=== PATIENT | female | born 1975 | race Caucasian/White ===

== ENCOUNTER 2018-05-30 11:39 | Outpatient (CLI) | payer MEDICAID, SELFPAY ==
[2018-05-30 14:27] LABS: Hemoglobin A1C 9.8 % (4.5-6.2)
== END 2018-05-30 11:59 ==
PROVIDERS: PCP Family Medicine; Visit Provider Family Medicine
DX: E11.9 Type 2 diabetes mellitus without complications (principal)
CPT/HCPCS: 36415; 83036

== ENCOUNTER 2018-08-07 00:16 | Outpatient (CLI) | payer MEDICAID, SELFPAY ==
--- NOTE | 2018-08-07 12:56 | DI.MAMMO_ITS ---
SYMPTOMS/DIAGNOSIS: BASELINE SCREENING, Z12.31 MAMMOGRAMS: Mammograms were interpreted according to the usual protocol including computer analysis with CAD system, tomosynthesis and C view imaging. No priors for comparison. No suspicious masses or microcalcifications are seen. There is no definite evidence of malignancy. IMPRESSION: Negative mammogram. Routine screening is recommended. Breast density B, category 1. MQSA ASSESSMENT OF FINDINGS: Negative. Category 1. Patient will receive a letter notifying them of these results. BI-RADS category B. There are scattered areas of fibroglandular density.
== END 2018-08-07 00:36 ==
PROVIDERS: PCP Family Medicine; Visit Provider Family Medicine
DX: Z12.31 Encounter for screening mammogram for malignant neoplasm of breast (principal)
CPT/HCPCS: 77063; 77067

== ENCOUNTER 2018-10-17 14:38 | Outpatient (CLI) | payer MEDICAID, SELFPAY ==
[2018-10-17 15:15] LABS: Hemoglobin A1C 8.4 % (4.5-6.2)
[2018-10-17 15:52] LABS: Cholesterol 207 mg/dL (50-200); HDL Cholesterol 48 mg/dL (40-60); LDL CHOLESTEROL 138 mg/dL (<100); Triglyceride 104 mg/dL (30-150)
== END 2018-10-17 14:58 ==
PROVIDERS: PCP Family Medicine; Visit Provider Family Medicine
DX: E78.5 Hyperlipidemia, unspecified (principal); E11.9 Type 2 diabetes mellitus without complications; Z12.4 Encounter for screening for malignant neoplasm of cervix; Z11.51 Encounter for screening for human papillomavirus (HPV)
CPT/HCPCS: 36415; 80061; 83721; 83036

== ENCOUNTER 2018-10-17 14:45 | Outpatient (REF) | payer MEDICAID, SELFPAY ==
--- NOTE | 2018-10-17 14:00 | PAPFT_PTH ---
PATIENT: Leah Kurtz LOC: [facility] U#:[id number] AGE/SX: 42/F ROOM: RE10/17/[address]: Dean Carroll MD : 1975 BED: DIS: 10/17/2018 SPEC #: [id number] RECD: 10/17/18 18:21 STATUS: JESSI RERosita #: [id number] TISHA: 10/17/18 14:[address]: Dean Carroll DEPT: [facility] Cytology RECD BY: Karen Knox Tissues: 1 - CX/ENDOCX FOR PAP SMEARS Procedures: PAP THIN PREP/UVM Screening HPV DNA PROBE Comments: [id number]
== END 2018-10-17 15:05 ==
LOC: LBN 14:45
PROVIDERS: PCP Family Medicine; Visit Provider Family Medicine
DX: Z12.4 Encounter for screening for malignant neoplasm of cervix (principal); Z11.51 Encounter for screening for human papillomavirus (HPV)
CPT/HCPCS: 88142; 87624

== ENCOUNTER 2019-01-16 13:27 | Outpatient (CLI) | payer MEDICAID, SELFPAY ==
[2019-01-16 14:45] LABS: TSH (W/Ref FT4) 1.56 uIU/mL (0.36-3.74)
== END 2019-01-16 13:47 ==
PROVIDERS: PCP Family Medicine; Visit Provider Family Medicine
DX: E03.9 Hypothyroidism, unspecified (principal); E11.9 Type 2 diabetes mellitus without complications
CPT/HCPCS: 36415; 84443

== ENCOUNTER 2019-01-21 12:17 | Outpatient (CLI) | payer MEDICAID, SELFPAY ==
[2019-01-21 13:05] LABS: Hemoglobin A1C 8.6 % (4.5-6.2)
[2019-01-21 13:40] LABS: CREATININE 0.89 mg/dL (0.55-1.02); Potassium 4.3 mmol/L (3.5-5.1)
== END 2019-01-21 12:37 ==
PROVIDERS: PCP Family Medicine; Visit Provider Family Medicine
DX: E11.9 Type 2 diabetes mellitus without complications (principal)
CPT/HCPCS: 36415; 82565; 83036; 84132

== ENCOUNTER 2019-07-31 15:55 | Outpatient (CLI) | payer MEDICAID, SELFPAY ==
[2019-07-31 16:37] LABS: Hemoglobin A1C 8.7 % (3.8-5.6)
== END 2019-07-31 16:15 ==
PROVIDERS: PCP Family Medicine; Visit Provider Family Medicine
DX: R73.9 Hyperglycemia, unspecified (principal)
CPT/HCPCS: 36415; 83036

== ENCOUNTER 2020-01-20 03:59 | Outpatient (CLI) | payer MEDICAID, SELFPAY ==
[2020-01-20 14:22] LABS: Hemoglobin A1C 10.2 % (3.8-5.6)
[2020-01-20 15:08] LABS: CREATININE 1.01 mg/dL (0.55-1.02); Calculated LDL 107 mg/dL (<100); Cholesterol 189 mg/dL (<200); Estimated GFR 59.01 (mL/min/1.73m2); HDL Cholesterol 36 mg/dL (40-60); Potassium 3.8 mmol/L (3.5-5.1); Triglyceride 234 mg/dL (<150)
== END 2020-01-20 04:19 ==
PROVIDERS: PCP Family Medicine; Visit Provider Family Medicine
DX: E78.5 Hyperlipidemia, unspecified (principal); I10 Essential (primary) hypertension; R73.9 Hyperglycemia, unspecified
CPT/HCPCS: 36415; 80061; 82565; 83036; 84132

== ENCOUNTER 2020-08-19 04:30 | Outpatient (CLI) | payer MEDICAID, SELFPAY ==
--- NOTE | 2020-08-19 15:45 | DI.MAMMO_ITS ---
EXAM: MG MAMMO SCREENING CLINICAL HISTORY: screening.Z12.39 TECHNIQUE: Bilateral full field digital CC and MLO mammographic images were obtained with 3D tomosyn thesis and utilizing computer aided detection (CAD). COMPARISON: Available for comparison. FINDINGS: Masses/Architectural Distortion: None seen. Microcalcifications: No suspicious pleomorphic-type are seen. Skin Thickening/Nipple Retraction: None. IMPRESSION: 1. No significant interval change with no specific features of malignancy noted. 2. Unless there is more urgent need, screening mammography is recommended, as per [place] guidelines. BI-RADS Category 1 - Negative Breast Density - Category B - Scattered areas of fibroglandular density Breast density category C or D implies that the patient has dense breast tissue. Dense breast tissue is very common and is not abnormal but dense breast tissue can make it harder to find cancer on a ma mmogram. Also, dense breast tissue may increase their breast cancer risk. This information about the result of the mammogram report was provided to the patient to raise their awareness. Use this report when you speak with the patient about their risks for breast cancer, which includes their family hist ory. At that time, you may recommend for more screening tests (Ultrasound or MRI) as they might be us eful based on their risk. A negative radiographic report should not delay biopsy if a dominant or clinically suspicious mass is present. Up to ten percent of cancers are not identified on mammography. A negative report may reinforce clinical impression. Adenosis and dense breasts may obscure an underlying neoplasm. False positive reports average 6 to 10%. Patient will receive a letter notifying them of these results.
== END 2020-08-19 04:50 ==
PROVIDERS: PCP Family Medicine; Visit Provider Family Medicine
DX: Z12.31 Encounter for screening mammogram for malignant neoplasm of breast (principal)
CPT/HCPCS: 77063; 77067

== ENCOUNTER 2021-02-05 21:30 | Emergency (ER) | payer MEDICAID, SELFPAY ==
[2021-02-05 21:39] VITALS: BP 143/83; PULSE 97; RESP 17; TEMP 36.6; O2SAT 97
[2021-02-05 21:44] VITALS: RESP 16
--- NOTE | 2021-02-05 21:53 | W.ED.GENAD ---
Discharge Plan Disposition Patient Disposition: HOME Condition: Stable Discharge Details Clinical Impression: Pain in right leg, Rash Primary Care Provider: Dean Carroll ED Provider: Josiah Larsen Home Meds and New Rx's Prescriptions: Continued harley fusion See Rx Instructions .ROUTE .COMPLEX RF: 0 Jardiance 25 mg tablet 25 mg PO QAM Qty: 90 RF: 3 glipizide 10 mg tablet extended release 24hr 20 mg PO DAILY Qty: 180 RF: 3 (DME) blood-glucose meter [OneTouch UltraMini] kit See Dose Instructions .ROUTE .MEDSUPPLY Qty: 1 RF: 0 (DME) lancets [OneTouch Delica Lancets] 33 gauge misc See Dose Instructions .ROUTE .MEDSUPPLY Qty: 100 RF: 3 epinephrine 0.3 mg/0.3 mL auto-injector 0.3 mg IM Q15M PRN (Reason: anaphylaxis) Qty: 2 RF: 0 (DME) OneTouch Ultra Blue Test Strip Strip See Rx Instructions .ROUTE .MEDSUPPLY Qty: 100 RF: 3 ibuprofen 800 mg tablet 800 mg PO TID PRN (Reason: pain) Qty: 90 RF: 2 loratadine 10 mg tablet 10 mg PO DAILY Qty: 90 RF: 3 Lantus Solostar U-100 Insulin 100 unit/mL (3 mL) insulin pen 30 - 50 unit subcut HS Qty: 45 RF: 3 levothyroxine 112 mcg tablet 112 mcg PO DAILY Qty: 90 RF: 3 semaglutide 7 mg tablet 7 mg PO DAILY Qty: 90 RF: 3 (DME) pen needle, diabetic 31 gauge x 1/6 needle 1 ea Miscellaneous DAILY Qty: 100 RF: 3 Discharge Instructions Additional Instructions: you did not have a blood clot on the limited bedside ultrasound you should be contacted to have an ultrasound by radiology tomorrow if you have severe worsening pain, shortness of breath, chest pain or feel more ill return to the emergency department Medical Decision Making 45 yo female comes in after she noticed several hours ago 3 small bruised areas on her leg without known trauma. Denies falls or straining her leg. She has 3 areas of mild bruising on the right inner thigh about 2cm in diameter. Mild tenderness to palpation, no warmth or fluctuance and no other rashes elsewhere. Normal distal sensation and pulses. No leg swelling or calf tenderness. I performed limited bedside u/s and did not visualize a dvt in the common femoral or popliteal vein with good compressibility. Discussed findings with patient and likely hematoma vs superficial thrombophlebitis. no recent travel or immobilization so feel she is low risk for dvt and do not feel she requires empiric anticoagulation. Will have her return tomorrow for formal u/s and return precautions given Differential Diagnosis Differential Diagnosis: thrombophlebitis, dvt, hematoma HPI General Mode of arrival: ambulatory. Date/Time Provider Initiated Documentation: 02/05/21 21:32. Limitations to Documentation: no limitations. Information obtained by: patient. History of Present Illness 45 year old F presents to the emergency department with the chief complaint of right leg pain, described as moderate, Quality is described as aching, and is localized to the right and lower extremity. Patient reports no radiation. Patient started experiencing this hour(s) (2) and it has been constant. No relieving factors improve symptom(s), No exacerbating factors reported . Patient notes no other symptoms.. Patient did receive the following treatments prior to arrival, none Related Data Home Medications Medication Instructions Recorded Confirmed blood-glucose meter #1 each 04/29/18 04/08/20 lancets 33 gauge #100 each 04/29/18 04/08/20 harley fusion See Rx Instructions .ROUTE .COMPLEX 04/21/19 02/05/21 epinephrine 0.3 mg/0.3 mL 0.3 mg IM Q15M PRN #2 each 08/13/19 02/05/21 injection, auto-injector empagliflozin 25 mg tablet 25 mg PO QAM #90 tab 04/08/20 02/05/21 blood sugar diagnostic #100 ea 06/22/20 ibuprofen 800 mg tablet 800 mg PO TID PRN #90 tab-cap 08/30/20 02/05/21 loratadine 10 mg tablet 10 mg PO DAILY #90 tab 10/07/20 02/05/21 insulin glargine 100 unit/mL (3 30 - 50 unit SUBCUT HS #45 ml 10/14/20 mL) subcutaneous pen glipizide 10 mg tablet, extended 20 mg PO DAILY #180 tab-cap 11/04/20 02/05/21 release 24 hr levothyroxine 112 mcg tablet 112 mcg PO DAILY #90 tab-cap 01/02/21 02/05/21 pen needle, diabetic 31 gauge x #100 ea 01/02/21 1 semaglutide 7 mg tablet 7 mg PO DAILY #90 tab 01/02/21 02/05/21 Previous Rx's Medication Instructions Recorded blood-glucose meter #1 each 04/29/18 lancets 33 gauge #100 each 04/29/18 epinephrine 0.3 mg/0.3 mL 0.3 mg IM Q15M PRN #2 each 08/13/19 injection, auto-injector empagliflozin 25 mg tablet 25 mg PO QAM #90 tab 04/08/20 blood sugar diagnostic #100 ea 06/22/20 ibuprofen 800 mg tablet 800 mg PO TID PRN #90 tab-cap 08/30/20 loratadine 10 mg tablet 10 mg PO DAILY #90 tab 10/07/20 insulin glargine 100 unit/mL (3 30 - 50 unit SUBCUT HS #45 ml 10/14/20 mL) subcutaneous pen glipizide 10 mg tablet, extended 20 mg PO DAILY #180 tab-cap 11/04/20 release 24 hr levothyroxine 112 mcg tablet 112 mcg PO DAILY #90 tab-cap 01/02/21 pen needle, diabetic 31 gauge x #100 ea 01/02/2106/22 semaglutide 7 mg tablet 7 mg PO DAILY #90 tab 01/02/21 Allergies Allergy/AdvReac Type Severity Reaction Status Date / Time adhesive tape Allergy Severe RASH Verified 02/05/21 21:42 latex Allergy Severe SEVERE RASH Verified 02/05/21 21:42 lavender (Lavandula Allergy Severe HIVES Verified 02/05/21 21:42 angustifolia) liraglutide [From Victoza] AdvReac Severe VOMITNG, Verified 02/05/21 21:42 DIARRHEA, STOMACH PAIN caffeine AdvReac Intermediate Headache Verified 02/05/21 21:42 codeine AdvReac Intermediate vomiting Verified 02/05/21 21:42 lisinopril AdvReac Intermediate GI UPSET Verified 02/05/21 21:42 metformin AdvReac Intermediate diarrhea Verified 02/05/21 21:42 olives Allergy Severe HIVES Uncoded 02/05/21 21:42 sesame seeds Allergy Severe Anaphylaxsi Uncoded 02/05/21 21:42 s General Stated Complaint: GenMedical NASIR: 4 Review of Systems All systems reviewed & are unremarkable except as noted in HPI and below Constitutional Constitutional: Denies chills, Denies fever(s) and Denies weakness Cardiovascular Cardiovascular: Denies chest pain and Denies dyspnea Respiratory Respiratory: Denies cough and Denies dyspnea Gastrointestinal Gastrointestinal: Denies abdominal pain, Denies nausea and Denies vomiting Musculoskeletal Musculoskeletal: Denies joint swelling Neurologic Neurologic: Denies weakness PFSH Surgical History FB and infection to r knee age 13 Tooth extraction age 18-wisdom teeth Family History (Updated 08/08/20 @ 08:54 by Nancy Mittal) Mother , 66 Vulvar cancer Father Diabetes Colitis Asthma Brother Asthma Brother No problems noted. Maternal Grandfather , 66 Heart disease Paternal Grandfather , 50 Alcohol abuse Cancer Maternal Grandmother , 65 Heart disease Paternal Grandmother , 60 Leukemia Social History (Updated 08/08/20 @ 08:53 by Nancy Mittal) Smoking/Tobacco Use Status: Never Second Hand Exposure: Yes Smoking risk assessment performed?: Yes Alcohol Intake: current Alcohol Intake frequency: holidays/special occasions only Alcohol type: hard liquor Drug use: Never Substance use type: does not use Caregiver/Support person: No Household members: other Details: Dad Housing: house Communication Needs: Hard of Hearing and Corrective Lenses Do you need help understanding health information?: Rarely Pets and animals: No Sexually active: No Do you think of yourself as: straight/heterosexual Current gender identity: female What is your relationship status?: never How often do you talk on the phone with friends or family?: never How often do you get together with friends or relatives?: once per week How often do you attend episcopal or tenriism services?: decline to answer Do you belong to any clubs or organized social groups?: no Panel score (0-1 are the most socially isolated patients): 0 What type of physical activity do you participate in: none Duration: < 15 minutes/day Frequency: 1-2 times per week Pearl/Restoration: None Special pearl needs: No Seatbelt use: always Helmet use: Yes Helmet use: always Drive intox or ride w/intox special education bus driver: No Do you feel safe at home: Yes Do you feel safe in your relationship?: Yes Exam Const General: no acute distress Orientation: alert [facility] Head: normal to inspection Ears: external ears normal General nose exam: external nose normal Mouth: moist mucous membranes Eyes General: appearance normal, both eyes and all related structures Neck Neck: normal visual inspection Resp Effort & Inspection: normal respiratory effort and able to speak in complete sentences Cardio Rate: regular rate Skin General skin exam: elasticity normal Neuro General: patient alert and patient oriented x3 Extrem General: full ROM and capillary refill normal Psych Mental Status: mental status grossly normal Course Vital Signs Vital signs: Vital Signs Respiratory Rate 16 02/05/21 21:44 Respiratory Rate 16 02/05/21 21:44 Respiratory Effort Non-Labored 02/05/21 21:44 Respiratory Depth Normal 02/05/21 21:44 Respiratory Pattern Normal 02/05/21 21:44 Pain Level 3 02/05/21 21:39
== END 2021-02-05 22:00 | disposition home or self-care (01) ==
PROVIDERS: Emergency Provider Emergency Medicine; PCP Family Medicine
DX: R21 Rash and other nonspecific skin eruption (principal); M79.651 Pain in right thigh
CPT/HCPCS: 99284; 99283

== ENCOUNTER 2021-02-10 12:39 | Outpatient (CLI) | payer MEDICAID, SELFPAY ==
[2021-02-10 12:53] LABS: Abs Immature Grans 0.02 10^3/uL (0.0-0.06); Absolute Basophil Count 0.06 10^3/uL (0.0-0.2); Absolute Lymphocyte Count 1.89 10^3/uL (1.2-3.4); Absolute Neutrophil Count 3.42 10^3/uL (1.2-6.7); Eosinophils % 3.3; HCT 42.8 % (36.0-46.0); HGB 14.6 g/dL (11.2-15.7); Immature Grans % 0.3; Lymphocytes % 31.6; MCH 31.5 pg (27.0-33.0); MCHC 34.1 % (32.0-36.0); MCV 92.4 fL (80-95); Monocytes % 6.7; Neutrophils % 57.1; Nucleated RBC 0 %; Platelet Count 276 10^3/uL (130-400); RBC 4.63 10^6/uL (3.93-5.22); RDW-SD 43.7 fL; WBC 5.99 10^3/uL (4.4-10.8)
== END 2021-02-10 12:40 | disposition home or self-care (01) ==
LOC: LBO 12:41
PROVIDERS: PCP Family Medicine; Visit Provider Family Medicine
DX: R58 Hemorrhage, not elsewhere classified (principal)
CPT/HCPCS: 36415; 85025

== ENCOUNTER 2021-08-18 17:28 | Outpatient (REF) | payer MEDICAID, SELFPAY ==
[2021-08-20 14:50] LABS: COVID-19 RT-PCR UVMMC Result Negative (Negative)
== END 2021-08-18 17:29 | disposition home or self-care (01) ==
LOC: LBN 17:28
PROVIDERS: PCP Family Medicine; Visit Provider Nurse Practitioner Family
DX: Z20.822 Contact with and (suspected) exposure to COVID-19 (principal)
CPT/HCPCS: U0003

== ENCOUNTER 2021-09-14 04:07 | Outpatient (CLI) | payer MEDICAID, SELFPAY ==
[2021-09-14 14:48] LABS: CREATININE 0.8 mg/dL (0.55-1.02); Calculated LDL 132 mg/dL (<100); Cholesterol 199 mg/dL (<200); HDL Cholesterol 45 mg/dL (40-60); Potassium 3.9 mmol/L (3.5-5.1); TSH (W/Ref FT4) 2.95 uIU/mL (0.36-3.74); Triglyceride 111 mg/dL (<150)
== END 2021-09-14 04:08 | disposition home or self-care (01) ==
LOC: LBO 04:07
PROVIDERS: PCP Family Medicine; Visit Provider Family Medicine
DX: E03.9 Hypothyroidism, unspecified (principal); I10 Essential (primary) hypertension; E78.5 Hyperlipidemia, unspecified
CPT/HCPCS: 36415; 80061; 82565; 84132; 84443

== ENCOUNTER 2022-09-10 11:38 | Outpatient (REF) | payer MEDICAID, SELFPAY ==
--- NOTE | 2022-09-07 14:00 | PAPFT_PTH ---
PATIENT: Leah Kurtz LOC: [facility] #:[id number] AGE/SX: 46/F ROOM: RE09/10/[address]: Timi Nieves NP : 1975 BED: DIS: 09/10/2022 SPEC #: [id number] RECD: 09/10/22 13:02 STATUS: JESSI ARIZMENDI #: [id number] TISHA: 09/07/22 14:[address]: Timi Nieves DEPT: [facility] Cytology RECD BY: Karen Knox Tissues: 1 - CX/ENDOCX FOR PAP SMEARS Procedures: PAP THIN PREP/UVM Screening HPV DNA PROBE Comments: [id number]
== END 2022-09-10 11:39 | disposition home or self-care (01) ==
LOC: LBN 11:38
PROVIDERS: PCP Nurse Practitioner Family; Visit Provider Nurse Practitioner Family
DX: Z12.4 Encounter for screening for malignant neoplasm of cervix (principal); Z11.51 Encounter for screening for human papillomavirus (HPV)
CPT/HCPCS: 88142; 87624

== ENCOUNTER 2022-11-09 01:30 | Outpatient (CLI) | payer MEDICAID, SELFPAY ==
[2022-11-09 12:51] LABS: TSH (W/Ref FT4) 5.56 uIU/mL (0.36-3.74)
[2022-11-09 13:15] LABS: FREE T4 1.12 ng/dL (0.76-1.46)
== END 2022-11-09 01:31 | disposition home or self-care (01) ==
LOC: LBO 01:30
PROVIDERS: PCP Nurse Practitioner Family; Visit Provider Nurse Practitioner Family
DX: E03.9 Hypothyroidism, unspecified (principal)
CPT/HCPCS: 36415; 84439; 84443

== ENCOUNTER 2022-12-14 14:51 | Outpatient (REF) | payer MEDICAID, SELFPAY ==
[2022-12-14 21:22] LABS: COMMENT (LAB VIEW ONLY) 41.44 mg/dL; Microalb ug/mg Crea 6.5 ug/mg Cr
== END 2022-12-14 14:52 | disposition home or self-care (01) ==
LOC: LBN 14:51
PROVIDERS: PCP Nurse Practitioner Family; Visit Provider Nurse Practitioner Family
DX: E11.9 Type 2 diabetes mellitus without complications (principal)
CPT/HCPCS: 82043; 82570

== ENCOUNTER 2023-04-17 13:18 | Outpatient (CLI) | payer MEDICAID, SELFPAY ==
[2023-04-17 12:46] LABS: Abs Immature Grans 0.01 10^3/uL (0.0-0.06); Absolute Basophil Count 0.07 10^3/uL (0.0-0.2); Absolute Eosinophil Count 0.31 10^3/uL (0.0-0.7); Absolute Lymphocyte Count 1.73 10^3/uL (1.2-3.4); Absolute Monocyte Count 0.57 10^3/uL (0.1-0.8); Absolute Neutrophil Count 3.59 10^3/uL (1.2-6.7); Basophils % 1.1; Eosinophils % 4.9; HCT 44.7 % (36.0-46.0); HGB 15.3 g/dL (11.2-15.7); Immature Grans % 0.2; Lymphocytes % 27.5; MCH 31.5 pg (27.0-33.0); MCHC 34.2 % (32.0-36.0); MCV 92 fL (80-95); Monocytes % 9.1; Neutrophils % 57.2; Platelet Count 287 10^3/uL (130-400); RBC 4.85 10^6/uL (3.93-5.22); RDW 12.4 % (11.7-14.6); RDW-SD 42.3 fL; WBC 6.28 10^3/uL (4.4-10.8)
[2023-04-17 12:58] LABS: Iron 78 ug/dL (50-170); Total Iron Binding Capacity 246 ug/dL (250-450)
[2023-04-17 13:15] LABS: ALT 67 U/L (14-59); AST 30 U/L (15-37); Albumin 3.7 g/dL (3.4-5.0); Alkaline Phosphatase 76 U/L (46-116); Anion Gap 11.3 mmol/L (3-11); BUN 19 mg/dL (7-18); Bilirubin, Total 0.4 mg/dL (0.2-1.0); CO2 23.7 mmol/L (21.0-32.0); CREATININE 0.9 mg/dL (0.55-1.02); Calcium 9.8 mg/dL (8.5-10.1); Chloride 103 mmol/L (98-107); Estimated GFR 78.37 (mL/min/1.73m2); Ferritin 345 ng/mL (8-252); Glucose 241 mg/dL (74-106); Potassium 4.2 mmol/L (3.5-5.1); Sodium 138 mmol/L (136-145); TSH (W/Ref FT4) 1.29 uIU/mL (0.36-3.74); Total Protein 7.6 g/dL (6.4-8.2)
[2023-04-18 08:45] LABS: Transferrin 195 mg/dL (201-352)
== END 2023-04-17 13:19 | disposition home or self-care (01) ==
LOC: LOS 13:18
PROVIDERS: PCP Nurse Practitioner Family; Visit Provider Nurse Practitioner Family
DX: R55 Syncope and collapse (principal)
CPT/HCPCS: 36415; 80053; 82728; 83540; 83550; 84443; 84466; 85025

== ENCOUNTER 2023-06-13 08:12 | Day surgery (SDC) | payer MEDICAID, SELFPAY ==
--- NOTE | 2023-06-12 19:56 | PDOC.DSDIS_ITS ---
Date of service: 06/13/23 Time of Service: 11:02 Discharge Plan Disposition Patient Disposition: Home Condition: Good Discharge Details Reason For Visit: screening colonoscopy Attending Provider: Richard Valerio Primary Care Provider: Timi Nieves Home Meds and New Rx's Prescriptions: Continued harley fusion See Rx Instructions .ROUTE .COMPLEX Rx Instructions: 2 gummies daily ; Toujeo SoloStar U-300 Insulin 300 unit/mL (1.5 mL) insulin pen 60 unit subcut DAILY Qty: 18 3RF epinephrine 0.3 mg/0.3 mL auto-injector 0.3 mg IM Q15M PRN (Reason: anaphylaxis) Qty: 2 4RF Rx Instructions: do not exceed 3 doses per episode glipizide 10 mg tablet extended release 24hr 20 mg PO DAILY Qty: 180 4RF levothyroxine 112 mcg tablet 112 mcg PO DAILY Qty: 90 3RF Jardiance 25 mg tablet 25 mg PO QAM Qty: 90 3RF semaglutide 14 mg tablet 14 mg PO DAILY Qty: 90 3RF ibuprofen 800 mg tablet See Rx Instructions .ROUTE .COMPLEX Qty: 90 0RF Dose Instruction: TAKE 1 TABLET BY MOUTH THREE TIMES DAILY NEEDED FOR PAIN Rx Instructions: TAKE 1 TABLET BY MOUTH THREE TIMES DAILY NEEDED FOR PAIN (DME) blood-glucose meter [OneTouch UltraMini] Kit See Dose Instructions .ROUTE .MEDSUPPLY Qty: 1 0RF Dose Instruction: As directed Rx Instructions: test 1-3 times/day metronidazole 0.75 % cream 1 applic topical DAILY PRN (Reason: Rosacea) Qty: 45 3RF (DME) pen needle, diabetic 31 gauge x 1/6 needle 1 ea Miscellaneous DAILY Qty: 100 3RF Rx Instructions: test once/day (DME) lancets [OneTouch Delica Lancets] 33 gauge misc See Dose Instructions .ROUTE .MEDSUPPLY Qty: 100 3RF Dose Instruction: As directed Rx Instructions: test 1-3 times/day (DME) blood sugar diagnostic Strip See Rx Instructions .ROUTE .MEDSUPPLY Qty: 100 3RF Rx Instructions: test daily loratadine 10 mg tablet 10 mg PO DAILY Qty: 90 1RF Discontinued bisacodyl [Dulcolax (bisacodyl)] 5 mg tablet,delayed release (DR/EC) 5 mg PO ONCE Qty: 4 0RF Rx Instructions: Take per colonoscopy instructions provided by ordering providers office polyethylene glycol 3350 17 gram/dose powder 17 g PO ONCE Qty: 238 0RF Rx Instructions: Take per colonoscopy instructions provided by ordering providers office Discharge Instructions Instructions: Colorectal Polyps (GEN) Additional Instructions: Leah, we were able to complete your colonoscopy today without any difficulty at all. You did great. I did find 1 small polyp in your rectum. I removed th is completely. I will send this off for the pathologist to analyze. Once I have the information regarding the nature of the polyp, I will be in touch with recommendations for your next colonoscopy. If you have any questions in the meantime please do not hesitate to call 1. If tolerated, consume a soft, low fiber diet for 1-2 days. 2. Do not drive, drink alcohol, operate machinery, make critical decisions, or do activities that require coordination or balance for 24 hours. 3. Because air was put into your colon during the procedure, expelling air from your rectum (passing gas or farting) is normal. 4. You may not have a bowel movement for 1-3 days because of the colonoscopy prep. This is normal. 5. Go directly to the emergency room if you notice any of the following: Develop chills (warm to touch), or if you have a thermometer and your temperature is above 101 Difficulty breathing or difficultly swallowing Persistent vomiting Severe abdominal pain, other than gas cramps Severe chest pain Black, tarry stools Any bleeding ? exceeding one tablespoon 6. Call your physician if the site where your intravenous was started becomes red, swollen, painful, and warm to touch. 7. Your physician has reviewed your pre-procedure medications. Please continue to take those medications as previously ordered. You will be given specific information/education regarding any changes to your medications before leaving. Activity:: Activity as Tolerated Diet:: As Tolerated Discharge Orders Discharge Orders: Discharge Order (Routine); Ordered 06/12/23 Ordered By: Richard Valerio DS: Diagnosis Discharge Diagnosis (1) Screen for colon cancer: Status: Acute Asessment and Plan: Follow-up on polypectomy results
--- NOTE | 2023-06-12 19:58 | W.COLOREPORT ---
Date of service: 06/13/23 Time of Service: 11:03 Colonoscopy Report Date of procedure: 06/13/23 Pre-op diagnosis general: Screening colonoscopy Post-op diagnosis procedure note: other (Rectal polyp) Procedure: Colonoscopy with polypectomy Surgeon: Richard Valerio Anesthesia Type: General:No Airway Estimated blood loss (mL): 5 Pathology: other (0.25 cm rectal polyp) Complications: None Disposition: same day Indications: Leah is 47 years old. She needs a screening colonoscopy as part of routine health maintenance. Prep: Miralax/Dulcolax Procedure Start Time: 10:33 Procedure End Time: 10:53 Retraction Time: 14 Findings: 0.25 cm rectal polyp Procedure Description: After the induction of monitored anesthetic care, and with the patient in left lateral decubitus position, I began by performing an external anorectal exam.? Perineum and skin were normal, as was the anal verge.? There was no evidence of external hemorrhoids.? Next, I performed a digital rectal exam.? I did not appreciate any abnormal findings.? Next, I advanced a colonoscope into the rectal vault.? I performed retroflexion.? This was normal.? Using insufflation, I then advanced the colonoscope beyond the rectal folds and into the sigmoid colon before advancing towards the cecum.? The scope was noted to be in the cecum by identification of the ileocecal valve and appendiceal orifice.? I then began withdrawing the colonoscope using repeated irrigation as necessary for full evaluation of the colonic mucosa. ?Once the scope was withdrawn to the level of the rectum, great care was taken to examine portions of the rectal folds.? Within the midportion of the rectum, perhaps 10 cm up from the anal verge was a 0.25 cm rectal polyp. It was flat. I removed this with cold forceps without any issue. Finally, the scope was withdrawn and the patient was brought to the same-day surgery recovery unit as the anesthetic wore off. ?The findings and instructions were shared with the patient prior to discharge. [place] Bowel Prep [place] Bowel Prep Right Colon: 3 Left Colon: 3 Transverse Colon: 3 Total Score: 9
[2023-06-13 08:33] VITALS: BP 123/76; PULSE 70; RESP 16; TEMP 36.4; O2SAT 98
[2023-06-13] MEDS: Lactated Ringers 1,000 ML 80 ML IV (09:15)
--- NOTE | 2023-06-13 10:16 | ANES.PREOP_ITS ---
General Info Date of Service Date Performed: 06/13/23 Height: 5 ft 10 in Weight: 109.1 kg Body Mass Index (BMI): 34.4 Surgical Procedure: Operation Date: 06/13/23 10:05 Proposed Procedure Side Surgeon dian Valerio MD Meds Allergies and Home Medications Allergies Allergy/AdvReac Type Severity Reaction Status Date / Time adhesive tape Allergy Severe RASH Verified 06/13/23 08:41 latex Allergy Severe SEVERE RASH Verified 06/13/23 08:41 lavender (Lavandula Allergy Severe HIVES Verified 06/13/23 08:41 angustifolia) dulaglutide [From Trulicity] AdvReac Severe Significant Verified 06/13/23 08:41 GI distress inhibiting her ability to work liraglutide [From Victoza] AdvReac Severe VOMITNG, Verified 06/13/23 08:41 DIARRHEA, STOMACH PAIN caffeine AdvReac Intermediate Headache Verified 06/13/23 08:41 codeine AdvReac Intermediate vomiting Verified 06/13/23 08:41 insulin glargine AdvReac Intermediate insomnia Verified 06/13/23 08:41 [From Lantus U-100 Insulin] lisinopril AdvReac Intermediate GI UPSET Verified 06/13/23 08:41 metformin AdvReac Intermediate diarrhea Verified 06/13/23 08:41 atorvastatin AdvReac Mild vomiting Verified 06/13/23 08:41 olives Allergy Severe HIVES Uncoded 06/13/23 08:41 sesame seeds Allergy Severe Anaphylaxsi Uncoded 06/13/23 08:41 s Home Medication Medication Instructions Recorded harley fusion See Rx Instructions .Route .COMPLEX 04/21/19 ibuprofen 800 mg tablet See Rx Instructions .Route 04/23/22 .COMPLEX #90 tabs blood-glucose meter (VBrick SystemsTouch #1 ea 04/25/22 UltraMini kit) metronidazole 0.75 % topical cream 1 applic topical DAILY PRN Rosacea 04/25/22 #45 grams pen needle, diabetic 31 gauge x #100 ea 04/25/2206/22 blood sugar diagnostic #100 ea 07/04/22 lancets 33 gauge (OneTouch Delica #100 ea 07/04/22 Lancets) epinephrine 0.3 mg/0.3 mL 0.3 mg (0.3 mL) IM Q15M PRN 09/07/22 injection, auto-injector anaphylaxis #2 ea glipizide 10 mg tablet, extended 20 mg (2 x 10 mg) PO DAILY #180 09/07/22 release 24 hr tab-caps levothyroxine 112 mcg tablet 112 mcg PO DAILY #90 tab-caps 09/07/22 insulin glargine U-300 conc 300 60 unit (0.2 mL) subcut DAILY #18 12/14/22 unit/mL (1.5 mL) subcutaneous pen mL (Toujeo SoloStar U-300 Insulin) loratadine 10 mg tablet 10 mg PO DAILY #90 tabs 12/17/22 empagliflozin 25 mg tablet 25 mg PO QAM #90 tabs 03/15/23 (Jardiance) semaglutide 14 mg tablet 14 mg PO DAILY #90 tabs 03/15/23 Current Visit Medications: Current Medications Generic Name Dose Route Start Last Admin Trade Name Freq PRN Reason Stop Dose Admin Hyoscyamine Sulfate 0.125 mg 06/12/23 19:59 Hyoscyamine 0.125 Mg Sl/Oral/Chew SL 07/12/23 19:58 DIRECTED PRN Ringer's Solution 1,000 mls @ 80 mls/hr 06/13/23 06:00 06/13/23 09:15 IV 06/16/23 23:59 80 mls/hr INFUSION ANNE Administration IV Miscellaneous Supplies 1 each 06/13/23 06:00 Iv Access IV 06/16/23 23:59 DIRECTED ANNE Ondansetron HCl 4 mg 06/12/23 19:59 Ondansetron 4 Mg/2 Ml Vial IVP 07/12/23 19:58 Q4H PRN PRN Nausea / Vomiting Sodium Chloride 0 ml 06/13/23 06:00 Normal Saline Flush 10 Ml Syr IV 06/16/23 23:59 PRN PRN Sodium Chloride 0 ml 06/13/23 06:00 Normal Saline 10 Ml Vial IJ 06/16/23 23:59 DIRECTED PRN Sterile Water 0 ml 06/13/23 06:00 Water,Injection,Sterile 10 Ml Vial IJ 06/16/23 23:59 DIRECTED PRN PFSH Active Problems Active Problems: Problem Status Onset Code Diabetes mellitus E11.9 Screen for colon cancer Z12.11 Onychocryptosis L60.0 Syncopal episodes R55 NPDR (nonproliferative diabetic retinopathy) ~01/28/22 E11.3299 Sensorineural hearing loss of both ears H90.3 Sensorineural hearing loss (SNHL) of right ear H90.5 Enlarged lymph node in neck R59.0 Neurodermatitis L28.0 Hypothyroidism E03.9 Hyperlipidemia E78.5 Hidradenitis suppurativa L73.2 Surgical History Surgical History (Updated 06/13/23 @ 08:43 by Aida Gruber) Hx of colonoscopy FB and infection to r knee age 13 Tooth extraction age 18-wisdom teeth Tobacco Smoking/Tobacco Use Status: Never Passive smoking exposure: Yes Second hand exposure: Yes Alcohol Alcohol Intake: current Alcohol intake frequency: holidays/special occasions only Alcohol type: hard liquor Substance Use Substance use: Never Substance use type: does not use Details: alcohol: last new years Vital Signs and Lab Results Vital Signs Most Recent Vital Signs in EMR: Most Recent Vital Signs Temp Pulse Resp BP Pulse Ox 36.4 C L 70 16 123/76 98 06/13/23 08:33 06/13/23 08:33 06/13/23 08:33 06/13/23 08:33 06/13/23 08:33 Point of Care Results Point of Care Results: Finger Stick Blood Glucose 131 06/13/23 08:38 Lab Results Blood Type / Crossmatch: No Data to Display Complete Blood Count: No Data to Display Complete Metabolic Panel: No Data to Display Liver Function Panel: No Data to Display Coagulation Panel: No Data to Display Cardiac Panel: No Data to Display Arterial Blood Gas: No Data to Display Venous Blood Gas: No Data to Display Pancreas Panel: No Data to Display Thyroid Panel: No Data to Display Infectious Disease: No Data to Display Blood Cultures: No Data to Display Toxicology Panel: No Data to Display Panel: No Data to Display Anesthesia Assessment and Plan Anesthesia History Personal History: No History of Anesthesia Complications Family History: No Family History of Anesthesia Complications Exercise Tolerance Exercise Tolerance: Metabolic Equivalents>4 Cardiac & Pulmonary Exam Cardiac Exam: Normal S1/S2 Heart Sounds Pulmonary Exam: Clear Bilateral Breath Sounds Implantable Cardiac Device Does patient have a Pacemaker or an ICD?: No Airway Exam Known Difficult Airway: No Mallampati Class: 3 Mouth Opening: Normal (> 3cm) Thyromental Distance: Greater than 3 cm Neck Range of Motion: Full ROM Neck Circumference: Thick Teeth Condition: Normal Dentition ASA Classification ASA Score: ASA 2 Emergency Case?: No NPO Status NPO Status: NPO Clears >2 hours, Solids >8 hours Status Status: Pt. refuses testing, she was counseled on anesthesia risks Anesthesia Plan Resuscitation Status: Full Code Anesthesia Technique: General Anesthesia Airway Planned: Natural Airway Monitors Used: Standard Monitors Preoperative Comments:: 47 yo for colo. Sig PMHx: GERD (diet related), DM (last A1c 8~, last dose of semaglutide 2 weeks ago), hypothyroid (on replacement).
[2023-06-13 10:19] VITALS: BMI 34.4
--- NOTE | 2023-06-13 10:52 | BOWEL_PTH ---
PATIENT: Leah Kurtz LOC: [facility] U#:[id number] AGE/SX: 47/F ROOM: RE06/13/[address]: Richard Valerio MD : 1975 BED: DIS: 06/13/2023 SPEC #: [id number] RECD: 06/13/23 12:58 STATUS: JESSI REQ #: [id number] TISHA: 06/13/23 10:[address]: Richard Valerio DEPT: Surgical Specimen RECD BY: Karen Knox ENTERED: 06/13/23 12:59 SP TYPE: Bowel OTHR DR: Timi Nieves, CATHRYN Tissues: 1 - BIOPSY BOWEL Procedures: GROSS AND MICRO LEVEL 4 Comments: [id number]
[2023-06-13 11:04] VITALS: BP 120/64; PULSE 64; RESP 14; TEMP 36.4; O2SAT 98
[2023-06-13 11:13] VITALS: BP 130/77; PULSE 61; RESP 18; TEMP 36.5; O2SAT 99
--- NOTE | 2023-06-13 13:13 | W.ANESPOSTOP ---
Postoperative Evaluation Date, Time and Location Date Performed: 06/13/23 Time Performed: 11:08 Patient Location: Day Surgery Unit Vital Signs Most Recent Imported Vital Signs: Most Recent Vital Signs Temp Pulse Resp BP Pulse Ox 36.5 C 61 18 130/77 99 06/13/23 11:13 06/13/23 11:13 06/13/23 11:13 06/13/23 11:13 06/13/23 11:13 Pain Score Most Recent Pain Score: Most Recent Pain Score Pain Level 0 06/13/23 11:13 Assessment Mental Status: Awake (Alert & Oriented to Patient Baseline) Airway and Respiratory Function: Patent airway with normal (patient baseline) respiratory exam Cardiovascular Function: Hemodynamically Stable Hydration Status: Adequately Hydrated Nausea & Vomiting: No Nausea or Vomiting Pain: Pt. Denies Any Pain Peripheral Nerve Block: Patient did not receive a nerve block
== END 2023-06-13 11:28 | disposition home or self-care (01) ==
LOC: SUR 08:13
PROVIDERS: PCP Nurse Practitioner Family; Visit Provider Surgery
PROC: 0DJD8ZZ Inspection of Lower Intestinal Tract, Via Natural or Artificial Opening Endoscopic (ICD-10-PCS; CPT 45378; principal; 2023-06-13 10:00)
DX: Z12.11 Encounter for screening for malignant neoplasm of colon (principal); K63.5 Polyp of colon
CPT/HCPCS: 45380; 81025; 88305; J2001

== ENCOUNTER 2023-12-20 18:17 | Outpatient (REF) | payer SELFPAY ==
[2023-12-20 21:10] LABS: Bilirubin Negative (Negative); Blood Small (Negative); Clarity Clear (Clear); Glucose >=1000 mg/dL (Negative); Ketones Negative (Negative); Leukocyte Esterase Negative (Negative); Nitrite Negative (Negative); Urobilinogen 0.2 mg/dL (Up to 0.2); pH 5.5 (5-8)
[2023-12-20 21:24] LABS: Bacteria Rare HPF (Negative); C & S Indicated? No/Sq. Contamination; Casts Negative LPF (Negative); Crystals Negative HPF (Negative); Epithelial Cells Many HPF (Negative); Mucus Negative (Negative)
== END 2023-12-20 18:18 | disposition home or self-care (01) ==
LOC: LBN 18:17
PROVIDERS: PCP Nurse Practitioner Family; Visit Provider Nurse Practitioner Family
DX: R10.31 Right lower quadrant pain (principal); R39.15 Urgency of urination; R82.998 Other abnormal findings in urine
CPT/HCPCS: 81003; 81015

== ENCOUNTER 2024-07-02 15:10 | Outpatient (REF) | payer OTHER, SELFPAY | END 2024-07-02 15:11 | disposition home or self-care (01) | LOC: LBN 15:10 | PROVIDERS: PCP Podiatrist; Visit Provider Podiatrist | DX: L97.529 Non-pressure chronic ulcer of other part of left foot with unspecified severity (principal); M79.674 Pain in right toe(s); L97.522 Non-pressure chronic ulcer of other part of left foot with fat layer exposed; L03.90 Cellulitis, unspecified; L60.0 Ingrowing nail; M79.671 Pain in right foot | CPT/HCPCS: 87077; 87070; 87075; 87186; 87205 ==

== ENCOUNTER 2024-07-02 17:17 | Outpatient (CLI) | payer OTHER, SELFPAY ==
[2024-07-02 15:17] LABS: Abs Immature Grans 0.02 10^3/uL (0.0-0.06); Absolute Basophil Count 0.05 10^3/uL (0.0-0.2); Absolute Eosinophil Count 0.23 10^3/uL (0.0-0.7); Absolute Lymphocyte Count 2.02 10^3/uL (1.2-3.4); Absolute Monocyte Count 0.49 10^3/uL (0.1-0.8); Absolute Neutrophil Count 2.91 10^3/uL (1.2-6.7); Basophils % 0.9 %; HCT 40.3 % (36.0-46.0); HGB 14.5 g/dL (11.2-15.7); Immature Grans % 0.3 %; Lymphocytes % 35.3 %; MCH 32.6 pg (27.0-33.0); MCV 91 fL (80-95); MPV 10.9 fL (8.0-11.0); Monocytes % 8.6 %; Neutrophils % 50.9 %; Platelet Count 257 10^3/uL (130-400); RBC 4.45 10^6/uL (3.93-5.22); RDW 12.3 % (11.7-14.6); RDW-SD 40.6 fL; WBC 5.72 10^3/uL (4.4-10.8)
[2024-07-02 16:31] LABS: Hemoglobin A1C 12.2 % (<5.7)
== END 2024-07-02 17:18 | disposition home or self-care (01) ==
LOC: LBO 17:17
PROVIDERS: PCP Podiatrist; Visit Provider Podiatrist
DX: L03.90 Cellulitis, unspecified (principal); L97.522 Non-pressure chronic ulcer of other part of left foot with fat layer exposed
CPT/HCPCS: 36415; 83036; 85025; 87075

== ENCOUNTER 2024-07-07 01:45 | Outpatient (CLI) | payer OTHER, SELFPAY ==
--- NOTE | 2024-07-07 11:14 | DI.RAD_ITS ---
Exam(s) XR TOE RT GREAT EXAM: XR TOE RT GREAT CLINICAL HISTORY: paronychia,cellulitis,l03.90. TECHNIQUE: 2D digital imaging was performed. COMPARISON: No exams were available for comparison FINDINGS: 3 views No evidence of acute fracture nor diastasis of the Lisfranc joint. Next Gopi ossicle is noted on t he medial aspect of the foot adjacent to the navicular tuberosity. This is probably a sesamoid bone within the distal tibialis posterior tendon. Great toe metatarsophalangeal joint appears unremarkable. There is a radiopaque density in the great toe adjacent to the medial aspect of the distal phalanx me asuring approximately 4 x 2 mm. This may not be a typical bony excrescence at this level. There is, however, no radiographic evidence of osteomyelitis. Other phalanges of the toes appear unremarkable . IMPRESSION: No fractures and no evidence of osteomyelitis, given the history here. However, there is a 4 x 2 mm calcific density adjacent to the medial aspect proximal half of the dist al phalanx of the great toe. This would be within area of possible paronychia at this level. Correl ation with clinical findings recommended. DATA REPOSITORY: RADIATION DOSE DELIVERED:
== END 2024-07-07 02:05 ==
LOC: DI 01:45
PROVIDERS: PCP Nurse Practitioner Family; Visit Provider Podiatrist
DX: R93.6 Abnormal findings on diagnostic imaging of limbs (principal)
CPT/HCPCS: 73660

== ENCOUNTER 2024-08-31 13:32 | Outpatient (CLI) | payer OTHER, SELFPAY ==
--- NOTE | 2024-08-31 12:00 | DI.RAD_ITS ---
Exam(s) XR KNEE RT 4V AP,LAT,AKIN,PAT EXAM: XR KNEE RT 4V AP,LAT,AKIN,PAT CLINICAL HISTORY: eval pathology M25.561 Pain rt knee. TECHNIQUE: 2D digital imaging was performed. Three views. COMPARISON: No exams were available for comparison FINDINGS: BONES: No acute fracture is present. No bony destructive lesion is seen. Prominent patellar enthesop hytes. Enthesophyte at tibial tubercle. JOINTS: The knee is normally aligned. No joint effusion is seen. Minimal spurring at the articular as pect of the patella. The joint spaces are maintained. SOFT TISSUE: Normal. IMPRESSION: No acute abnormality. DATA REPOSITORY: RADIATION DOSE DELIVERED:
== END 2024-08-31 13:52 ==
LOC: DI 13:33
PROVIDERS: PCP Nurse Practitioner Family; Visit Provider Nurse Practitioner Family
DX: M25.561 Pain in right knee (principal)
CPT/HCPCS: 73564

== ENCOUNTER 2024-09-26 15:58 | Outpatient (REF) | payer OTHER, SELFPAY ==
[2024-09-26 16:35] LABS: HCT 48.2 % (36.0-46.0); HGB 16.4 g/dL (11.2-15.7); MCH 32.3 pg (27.0-33.0); MCV 95 fL (80-95); MPV 12.2 fL (8.0-11.0); Platelet Count 211 10^3/uL (130-400); RBC 5.08 10^6/uL (3.93-5.22); RDW 12.9 % (11.7-14.6); RDW-SD 45.1 fL; WBC 5.09 10^3/uL (4.4-10.8)
[2024-09-26 16:50] LABS: Hemoglobin A1C 11.2 % (<5.7)
[2024-09-26 16:59] LABS: ALT 107 U/L (14-59); AST 51 U/L (15-37); Albumin 3.8 g/dL (3.4-5.0); Alkaline Phosphatase 79 U/L (46-116); Anion Gap 10.9 mmol/L (3-11); BUN 25 mg/dL (7-18); Bilirubin, Total 0.5 mg/dL (0.2-1.0); CO2 24.1 mmol/L (21.0-32.0); Calcium 9.7 mg/dL (8.5-10.1); Calculated LDL 152 mg/dL (<100); Chloride 102 mmol/L (98-107); Cholesterol 244 mg/dL (<200); Estimated GFR 68.63 (mL/min/1.73m2); Glucose 383 mg/dL (74-106); HDL Cholesterol 60 mg/dL (>or=50); Potassium 4.8 mmol/L (3.5-5.1); Sodium 137 mmol/L (136-145); TSH (W/Ref FT4) 2.73 uIU/mL (0.36-3.74); Total Protein 7.7 g/dL (6.4-8.2); Triglyceride 162 mg/dL (<150)
[2024-09-28 09:04] LABS: Hepatitis C Ab w Rflx HCV PCR Negative (Negative)
[2024-09-28 09:32] LABS: HIV-1/2 Ag & Ab Screen Negative (Negative)
[2024-09-28 11:57] LABS: HBs Antibody, Quant 3.3 mIU/mL (See Note); Hep B Surface Ab Negative (See Note); Hepatitis B Core Antibody Negative (Negative); Hepatitis B Surface Antigen Negative (Negative)
== END 2024-09-26 15:59 | disposition home or self-care (01) ==
LOC: LBN 15:58
PROVIDERS: PCP Nurse Practitioner Family; Visit Provider Nurse Practitioner Family
DX: E11.65 Type 2 diabetes mellitus with hyperglycemia (principal); R13.10 Dysphagia, unspecified; Z11.4 Encounter for screening for human immunodeficiency virus [HIV]; E03.8 Other specified hypothyroidism; E06.3 Autoimmune thyroiditis; Z11.59 Encounter for screening for other viral diseases
CPT/HCPCS: 80053; 80061; 85027; 86704; 86706; 86803; 87340; 87389; 83036; 84443

== ENCOUNTER 2024-11-06 01:03 | Outpatient (CLI) | payer OTHER, SELFPAY ==
--- NOTE | 2024-11-06 08:30 | DI.MAMMO_ITS ---
Exam(s) MAMMO SCREENING EXAM: MAMMO SCREENING CLINICAL HISTORY: screening,Z12.39. TECHNIQUE: Bilateral full field digital CC and MLO mammographic images were obtained with 3D tomosyn thesis and utilizing computer aided detection (CAD). COMPARISON: Prior mammograms were reviewed. FINDINGS: There has been no significant change in the appearance and distribution of the fibroglandular tissue. No CAD designations There are no new spiculated masses nor malignant appearing microcalcification groups. There is no significant architectural distortion nor skin thickening-retraction. IMPRESSION: No radiographic evidence of malignancy. BI-RADS Category 1 - Negative Breast Density - Category B - There are scattered areas of fibroglandular density. Breast density Category C or D implies that the patient has dense breast tissue. Dense breast tissue can make it harder to find cancer on a mammogram. Dense breast tissue is also associated with an incr eased risk of breast cancer. This information about the result of the mammogram report was provided to the patient to raise their awareness. Use this report when you speak with the patient about their risks for breast cancer, which includes their family history. At that time, you may recommend additional screening tests (Ultrasoun d or MRI) as these tests may add significant information. A negative radiographic report should not delay biopsy if a dominant or clinically suspicious mass is present. Up to ten percent of cancers are not identified on mammography. A negative report may reinforce clinical impression. Adenosis and dense breasts may obscure an underlying neoplasm. False positive reports average 6 to 10%. Patient will receive a letter notifying them of these results.
== END 2024-11-06 01:23 ==
LOC: DI 01:04
PROVIDERS: PCP Nurse Practitioner Family; Visit Provider Nurse Practitioner Family
DX: Z12.31 Encounter for screening mammogram for malignant neoplasm of breast (principal); R92.323 Mammographic fibroglandular density, bilateral breasts
CPT/HCPCS: 77063; 77067

== ENCOUNTER 2024-11-06 14:49 | Outpatient (CLI) | payer OTHER, SELFPAY ==
[2024-11-11 17:48] LABS: Apolipoprotein B, Serum 99 mg/dL (48-124); Beta VLDL Cholesterol Not Detected mg/dL (<15); Beta VLDL Triglycerides Not Detected mg/dL (<15); Cholesterol, Total, CDC 210 mg/dL; Chylomicron Cholesterol Not Detected; Chylomicron Triglycerides Not Detected; HDL Cholesterol, CDC 60 mg/dL (>=50); LDL Cholesterol 135 mg/dL; LDL Triglycerides 44 mg/dL (<=50); Lp(a) Cholesterol <5 mg/dL (<5); LpX Not detected; Triglycerides, CDC 100 mg/dL; VLDL Cholesterol 15 mg/dL (<30); VLDL Triglycerides 33 mg/dL (<120)
== END 2024-11-06 14:50 | disposition home or self-care (01) ==
LOC: LBO 14:50
PROVIDERS: PCP Nurse Practitioner Family; Visit Provider Nurse Practitioner Family
DX: E78.5 Hyperlipidemia, unspecified (principal)
CPT/HCPCS: 36415; 80061; 82172; 82664

== ENCOUNTER 2025-02-16 16:00 | Outpatient (CLI) | payer OTHER, SELFPAY ==
[2025-02-16 14:45] LABS: ALT 160 U/L (14-59); AST 94 U/L (15-37); Albumin 3.9 g/dL (3.4-5.0); Alkaline Phosphatase 71 U/L (46-116); Anion Gap 8.7 mmol/L (3-11); BUN 22 mg/dL (7-18); Bilirubin, Total 0.7 mg/dL (0.2-1.0); CO2 24.3 mmol/L (21.0-32.0); Calcium 9.5 mg/dL (8.5-10.1); Chloride 103 mmol/L (98-107); Estimated GFR 60.84 (mL/min/1.73m2); Glucose 350 mg/dL (74-106); Potassium 4.5 mmol/L (3.5-5.1); Sodium 136 mmol/L (136-145); Total Protein 7.8 g/dL (6.4-8.2)
[2025-02-17 21:09] LABS: ALT 140 U/L (7-45); ActiTest Grade A3; ActiTest Interpretation severe activity; ActiTest Score 0.77; Apoliprotein A1 155 mg/dL (>=140); Bilirubin, Total 0.6 mg/dL (0.0 - 1.2); FibroTest Interpretation moderate fibrosis; FibroTest Score 0.54; FibroTest Stage F2; GGT 44 U/L (5 - 36)
== END 2025-02-16 16:01 | disposition home or self-care (01) ==
LOC: LBO 16:00
PROVIDERS: PCP Nurse Practitioner Family; Visit Provider Nurse Practitioner Family
DX: R10.9 Unspecified abdominal pain (principal); R74.8 Abnormal levels of other serum enzymes
CPT/HCPCS: 36415; 80053; 81596

== ENCOUNTER 2025-05-18 12:36 | Emergency (ER) | payer OTHER, SELFPAY ==
[2025-05-18 12:46] VITALS: BP 150/75; PULSE 68; RESP 18; TEMP 36.5; O2SAT 99
[2025-05-18 13:48] LABS: Glucose 250 mg/dL (Negative)
--- NOTE | 2025-05-18 14:51 | ED.GENADUL_ITS ---
Discharge Plan Disposition Patient Disposition: Home Condition: Improving Discharge Details Clinical Impression: Pancreatitis, Diabetes mellitus Primary Care Provider: Baron Villalobos ED Provider: Ramiro Bosch Home Meds and New Rx's Prescriptions: Continued (DME) Dexcom G7 Sensor Device See Rx Instructions .Route Qty: 3 12RF Rx Instructions: Apply to rear tricep for reading BG (DME) Dexcom G7 Plastic Eye Technician Misc See Rx Instructions .Route Qty: 1 0RF Rx Instructions: Use as directed epinephrine 0.3 mg/0.3 mL auto-injector 0.3 mg IM Q15M PRN (Reason: anaphylaxis) Qty: 2 4RF Rx Instructions: do not exceed 3 doses per episode glipizide 10 mg tablet extended release 24hr 20 mg PO DAILY Qty: 180 4RF insulin glargine U-300 conc [Toujeo Max U-300 SoloStar] 300 unit/mL (3 mL) insulin pen 110 unit subcut DAILY MDD 150 90 Days Qty: 48 4RF Rx Instructions: Inject 110 units subcutaneously once daily, increasing to 150 units as directed. loratadine 10 mg tablet 10 mg PO DAILY PRN (Reason: allergy symptoms) Qty: 30 1RF Rx Instructions: Take one 10 mg tablet by mouth once daily as directed. (DME) pen needle, diabetic [CareTouch Pen Needle] 31 gauge x 3/16 needle See Rx Instructions .Route Qty: 500 4RF Rx Instructions: Use five times daily for insulin injections meclizine 25 mg tablet 25 mg PO BID Patient Comments: Patient reports BID daily for now. potassium chloride [K-Tab] 20 mEq tablet extended release 20 meq PO DAILY 90 Days Qty: 90 4RF Rx Instructions: Take one 20 mEq tablet by mouth once daily. magnesium oxide 400 mg magnesium tablet 400 mg PO DAILY 90 Days Qty: 90 4RF Rx Instructions: Take one 400 mg tablet once daily by mouth ondansetron 4 mg tablet,disintegrating 4 mg PO Q6H PRN (Reason: nausea and vomiting) Qty: 30 0RF levothyroxine 112 mcg tablet 112 mcg PO DAILY Qty: 90 3RF clobetasol 0.05 % solution 1 applic topical QHS Qty: 50 0RF Rx Instructions: for no longer than 2 weeks at a time (DME) blood-glucose meter [Accu-Chek Guide Glucose Meter] Misc See Rx Instructions .Route Qty: 1 0RF Rx Instructions: As directed - use once daily (DME) Accu-Chek Guide test strips Strip See Rx Instructions .Route Qty: 100 4RF Rx Instructions: Once daily testing metronidazole 0.75 % cream 1 applic topical DAILY PRN (Reason: Rosacea) Qty: 45 3RF insulin aspart U-100 [Novolog FlexPen U-100 Insulin] 100 unit/mL (3 mL) insulin pen 20 unit subcut TID 90 Days Qty: 60 4RF Rx Instructions: Inject 20 units subcutaneously three times daily with meals as directed. furosemide [Lasix] 20 mg tablet 20 mg PO DAILY Rx Instructions: Take three 20 mg tablets once every other day as needed 05/18/25 Discontinued Ozempic 0.25 mg or 0.5 mg (2 mg/3 mL) pen injector 0.25 mg subcut QWEEK 28 Days Qty: 1.472 12RF Rx Instructions: Inject 0.25 mg subcutaneously once weekly as directed. Discharge Instructions Instructions: Pancreatitis (DC) Additional Instructions: Follow-up with PCP about stopping the Ozempic Stand Alone Forms: Portal Information Referrals: Baron Villalobos NP [Primary Care Provider, Medicine] - 05/20/25 Discharge Data Discharge Physician: Ramiro Bosch [facility] General Date/Time Provider Initiated Documentation: 05/18/25 14:51 . [facility] Narrative: Patient presents emergency department complaining of right upper quadrant pain and right flank pain that started about 2 weeks ago and is progressive getting worse. The only thing she notes that that she started Ozempic. Denies fever chills denies any nausea denies vomiting denies any hematuria Related Data Home Medications ?Medication ?Instructions ?Recorded ?Confirmed metronidazole 0.75 % topical cream 1 applic topical DA DIANNA PRN Rosacea 04/25/22 05/18/25 #45 grams blood sugar diagnostic (Accu-Chek #100 ea 01/29/2508/11 Guide test strips) blood-glucose meter (Accu-Chek #1 ea 01/29/25 05/18/25 Guide Glucose Meter) clobetasol 0.05 % scalp solution 1 applic topical QHS #50 mL 01/29/25 05/18/25 levothyroxine 112 mcg tablet 112 mcg PO DAILY #90 tab- caps 01/29/25 05/18/25 blood-glucose sensor (Dexcom G7 #3 ea 02/03/25 5 Sensor device) blood-glucose,desulphurizer operator,cont #1 ea 02/03/25 05/18/25 (Dexcom G7 Plastic Eye Technician) epinephrine 0.3 mg/0.3 mL 0.3 mg (0.3 mL) IM Q15M PRN 02/16/25 05/18/25 injection, auto-injector anaphylaxis #2 ea glipizide 10 mg tablet, extended 20 mg (2 x 10 mg) PO DAILY #180 02/16/25 05/18/25 release 24 hr tab-caps insulin glargine U-300 conc 300 110 unit (0.3667 mL) s ubcut DAILY 02/16/25 05/18/25 unit/mL (3 mL) subcutaneous pen 90 days #48 mL (Toujeo Max U-300 SoloStar) loratadine 10 mg tablet 10 mg PO DAILY PRN allergy 0 02/16/25 05/18/25 symptoms #30 tabs pen needle, diabetic 31 gauge x #500 ea 03/05/2505/18 3/16 (CareTouch Pen Needle) insulin aspart U-100 100 unit/mL 20 unit (0.2 mL) subc ut TID 90 03/10/25 05/18/25 (3 mL) subcutaneous pen ( #60 mL FlexPen U-100 Insulin aspart) meclizine 25 mg tablet 25 mg PO BID 04/13/25 ondansetron 4 mg disintegrating 4 mg PO Q6H PRN nausea and 04/30/25 05/18/25 tablet vomiting #30 tabs magnesium oxide 400 mg PO DAILY 90 days #90 tabs 05/04/25 05/18/25 potassium chloride 20 mEq 20 meq PO DAILY 90 days #90 tabs 05/04/25 05/18/25 tablet,extended release (K-Tab) furosemide 20 mg tablet (Lasix) 20 mg PO DAILY 5 05/18/25 Previous Rx's ?Medication ?Instructions ?Recorded metronidazole 0.75 % topical cream 1 applic topical DA DIANNA PRN Rosacea 04/25/22 #45 grams blood sugar diagnostic (Accu-Chek #100 ea 01/29/25 Guide test strips) blood-glucose meter (Accu-Chek #1 ea 01/29/25 Guide Glucose Meter) clobetasol 0.05 % scalp solution 1 applic topical QHS #50 mL 01/29/25 levothyroxine 112 mcg tablet 112 mcg PO DAILY #90 tab- caps 01/29/25 blood-glucose sensor (Dexcom G7 #3 ea 02/03/25 Sensor device) blood-glucose,desulphurizer operator,cont #1 ea 02/03/25 (Dexcom G7 Plastic Eye Technician) epinephrine 0.3 mg/0.3 mL 0.3 mg (0.3 mL) IM Q15M PRN 02/16/25 injection, auto-injector anaphylaxis #2 ea glipizide 10 mg tablet, extended 20 mg (2 x 10 mg) PO DAILY #180 02/16/25 release 24 hr tab-caps insulin glargine U-300 conc 300 110 unit (0.3667 mL) s ubcut DAILY 02/16/25 unit/mL (3 mL) subcutaneous pen 90 days #48 mL (Toujeo Max U-300 SoloStar) loratadine 10 mg tablet 10 mg PO DAILY PRN allergy 0 02/16/25 symptoms #30 tabs pen needle, diabetic 31 gauge x #500 ea 03/05/25 3/ (CareTouch Pen Needle) insulin aspart U-100 100 unit/mL 20 unit (0.2 mL) subc ut TID 90 03/10/25 (3 mL) subcutaneous pen (Novo #60 mL FlexPen U-100 Insulin aspart) ondansetron 4 mg disintegrating 4 mg PO Q6H PRN nausea and 04/30/25 tablet vomiting #30 tabs magnesium oxide 400 mg PO DAILY 90 days #90 tabs 05/04/25 potassium chloride 20 mEq 20 meq PO DAILY 90 days #90 tabs 05/04/25 tablet,extended release (K-Tab) Allergies Allergy/AdvReac Type Severity Reaction Status Date / Time adhesive tape Allergy Severe RASH Verified 05/18/25 12:50 latex Allergy Severe SEVERE RASH Verified 05/18/25 12:50 lavender (Lavandula Allergy Severe HIVES Verified 05/18/25 12:50 angustifolia) avocado Allergy Intermediate Other (See Verified 05/18/25 12:50 Comment) kiwi Allergy Intermediate Swelling/Ed Verified 05/18/25 12:50 tamara dulaglutide (From Trulicity) AdvReac Severe Significant Verified 05/18/25 12:50 GI distress inhibiting her ability to work liraglutide (From Victoza) AdvReac Severe VOMITNG, Verified 05/18/25 12:50 DIARRHEA, STOMACH PAIN caffeine AdvReac Intermediate Headache Verified 05/18/25 12:50 codeine AdvReac Intermediate vomiting Verified 05/18/25 12:50 insulin glargine (From AdvReac Intermediate insomnia Verified 05/18/25 12:50 Lantus U-100 Insulin) lisinopril AdvReac Intermediate GI UPSET Verified 05/18/25 12:50 metformin AdvReac Intermediate diarrhea Verified 05/18/25 12:50 atorvastatin AdvReac Mild vomiting Verified 05/18/25 12:50 olives Allergy Severe HIVES Uncoded 05/18/25 12:50 sesame seeds Allergy Severe Anaphylaxsi Uncoded 05/18/25 12:50 s General Stated Complaint: FlankPain NASIR: 3 Review of Systems Narrative: Review of Systems: Constitutional: No fevers, chills, sweats Eye: No recent visual problems ENT: No ear pain, nasal congestion, sore throat Respiratory: No shortness of breath, cough Cardiovascular: No Chest pain, palpitations, syncope Gastrointestinal: No nausea, vomiting, diarrhea Genitourinary: No hematuria Alfonso/Lymph: Negative for bruising tendency, swollen lymph glands Endocrine: Negative for excessive thirst, excessive hunger Musculoskeletal: No back pain, neck pain, joint pain, muscle pain, decreased range of motion Integumentary: No rash, pruritus, abrasions Neurologic: Alert & oriented X 4 Psychiatric: No anxiety, depression Exam Narrative Exam Narrative: Exam; vitals signs as reported above normal Constitutional; In no acute distress, afebrile General: cooperative, healthy appearing, comfortable and no acute distress HEENT: Head: normal to inspection, no palpable skull fracture and normocephalic atraumatic Eyes: : appearance normal, both eyes and all related structures EOM intact bilaterally Pupils: PERRL : conjunctiva normal Direct ophthalmoscopy: normal light reflex, normal conjunctiva, normal visual acuity Ears: Normal TM, normal external canal Nose: normal no rhinorreha Neck no JVD, supple non tender Neck: normal visual inspection, full ROM and no lymphadenopathy Chest: normal inspection of the chest Respiratory : normal respiratory effort and able to speak in complete sentences no wheezing no rales Cardio Rate: regular rate, rhythm: regular rhythm normal heart sounds S1 and S2 no murmurs, gallops, or rubs GI : normal to inspection, normal bowel sounds, soft, non tender, non distended, no organomegaly Back/Spine/ no CVA tenderness Thoracic/Lumbar Spine: no tenderness or deformities Skin no rashes or lesions Neuro: patient alert oriented x 4 and no meningeal signs, Cranial Nerves: CN's II-XI intact bilaterally, Cognition: normal cognition, Speech: speech normal, Gait: normal gait, Depp tendon reflexes normal 2+ muscle strength 5/5 bilaterally Extremities, no edema, full range of motion, normal strength Course Vital Signs Vital signs: Vital Signs Temperature 36.5 C 05/18/25 12:46 Pulse 68 05/18/25 12:46 Respiratory Rate 18 05/18/25 12:46 Blood Pressure 150/75 H 05/18/25 12:46 Pulse Oximetry 99 05/18/25 12:46 Temperature 36.5 C 05/18/25 12:46 Temperature Source Oral 05/18/25 12:46 Pulse 68 05/18/25 12:46 Respiratory Rate 18 05/18/25 12:46 Blood Pressure 150/75 H 05/18/25 12:46 Pulse Oximetry 99 05/18/25 12:46 Pain Level 7 05/18/25 12:46 Lab/Test Results Lab/Test Results: Laboratory Tests Range/Units 05/18/25 13:09 Urine Color (Yellow) Yellow Urine Clarity (Clear) Sl Cloudy Urine pH (5-8) 5.5 Ur Specific [place] (1.005-1.025) 1.025 Urine Protein (Neg-Trace) mg/dL Negative Urine Ketones (Negative) mg/dL Trace H Urine Blood (Negative) Negative Urine Nitrite (Negative) Negative Urine Bilirubin (Negative) Negative Urine Urobilinogen (Up to 0.2) mg/dL 0.2 Ur Leukocyte Esterase (Negative) Negative Urine Glucose (Negative) mg/dL 250 H Medical Decision Making MDM: Summary: Patient was recently started Ozempic and start experiencing right flank and right upper quadrant pain which she feels is on and off but is a dull pain has been taking ibuprofen with no relief. Comes to the emergency department for evaluation. Here the labs are unremarkable symptomatic ovation of the lipase which I presume is his Ozempic induced pancreatitis. Patient's CAT scan does not show necrotizing pancreatitis or any other abnormalities at the radiologist. Review of the labs are unremarkable. Patient will follow-up with her primary care doctor and her pharmacist for their the ones who are managing the Ozempic to stop the Ozempic at this time. She received IV fluids and Toradol with improvement but will follow-up with her primary care Data Review Analysis All the data on this patient was reviewed by me including laboratory and imaging studies as well as bedside studies performed by me Independent review of Studies Imaging CT scan does not show any abnormality Lab: Labs show mild elevation of the lipase Risk Stratification: Patient with incipient pancreatitis probably due to Ozempic will be discharged home she is to stop the Ozempic contact her primary care doctor Differential Diagnosis: 1. Ozempic induced pancreatitis 2. Gastritis 3. Cholelithiasis 4. Cholecystitis 5. Consultants: Shared disposition: Patient assess disposition and will follow accordingly Impression: Medical Records Medical records reviewed: Yes I reviewed the patient's medical records. Imaging Data Radiologic Study: Imaging: CT Scan Radiologist's impression: CT scan of the abdomen pelvis does not show any abnormality pretty to the radiologist there is no evidence of gallstones and there is no evidence of overt pancreatitis Lab Data Lab results reviewed: Yes I reviewed the patient's lab results. [facility] All Active Problems (Updated 05/18/25 @ 16:38 by Ramiro Bosch MD) Pancreatitis (Chronic) Edema (Acute) Epicondylitis, lateral, right (Acute) Benign paroxysmal positional vertigo (Acute) Elevated liver enzymes (Acute) TMJ dysfunction (Acute) Ataxia (Acute) Dysconjugate gaze (Acute) Dysphagia (Acute) Balance problem (Acute) Right arm pain (Acute) Pain in right foot (Acute) Diabetes mellitus with hyperglycemia (Acute) Right flank pain (Acute) Hyperplastic colon polyp (Acute ~06/13/23) Diabetes mellitus (Chronic) not well controlled historically Onychocryptosis (Acute) Syncopal episodes (Chronic) NPDR (nonproliferative diabetic retinopathy) (Acute ~07/14/21) B/L Sensorineural hearing loss of both ears (Acute) Right Hearing Aid fit 12/08/2019 Tere Oconnell, HIS Sensorineural hearing loss (SNHL) of right ear (Acute) Enlarged lymph node in neck (Acute) Neurodermatitis (Acute) Hypothyroidism (Acute) Hyperlipidemia (Acute) Hidradenitis suppurativa (Acute) Medical History Paronychia of great toe of right foot Cellulitis Surgical History Hx of colonoscopy (~05/2023) path sent FB and infection to r knee age 13 Tooth extraction age 18-wisdom teeth Family History Mother , 66 Vulvar cancer Father Diabetes Colitis Asthma Brother Asthma Brother No problems noted. Maternal Grandfather , 66 Heart disease Paternal Grandfather , 50 Alcohol abuse Cancer Maternal Grandmother , 65 Heart disease Paternal Grandmother , 60 Leukemia Social History Smoking/Tobacco Use Status: Never Second Hand Exposure: Yes Smoking risk assessment performed?: Yes Alcohol Intake: current Alcohol Intake frequency: holidays/special occasions only Alcohol type: hard liquor Drug use: Never Substance use type: does not use Details: alcohol: last new years Caregiver/Support person: No Household members: family Housing: house Communication Needs: Hard of Hearing and Corrective Lenses Do you need help understanding health information?: Rarely Pets and animals: No Sexually active: No Do you think of yourself as: straight/heterosexual Current gender identity: female What is your relationship status?: never How often do you talk on the phone with friends or family?: decline to answer How often do you get together with friends or relatives?: once per week How often do you attend anabaptist or jehovah's witness services?: decline to answer Do you belong to any clubs or organized social groups?: no Panel score (0-1 are the most socially isolated patients): 0 What type of physical activity do you participate in: walking Duration: 15-30 minutes/day Frequency: 1-2 times per week Pearl/Quaker: None Special pearl needs: No Seatbelt use: always Helmet use: Yes Helmet use: always Drive intox or ride w/intox helper/driver: No Do you feel safe at home: Yes Do you feel safe in your relationship?: Yes Vital Signs & Lab Results Vital Signs Most Recent Vital Signs: Most Recent Vital Signs Temp Pulse Resp BP Pulse Ox 36.5 C 68 18 150/75 H 99 05/18/25 15:08 05/18/25 15:08 05/18/25 15:08 05/18/25 15:08 05/18/25 15:08 Lab Results 05/18/25 15:05/18/25 15:05 Complete Blood Count: 2 WBC, (4.4-10.8) 5.45 10^3/uL Today, 15:05 RBC, (3.93-5.22) 4.39 10^6/uL Today, 15:05 Hgb, (11.2-15.7) 14.3 g/dL Today, 15:05 Hct, (36.0-46.0) 39.5 % Today, 15:05 Plt Count, (130-400) 314 10^3/uL Today, 15:05 Complete Metabolic Panel: 2 Sodium, (136-145) 138 mmol/L Today, 15:05 Potassium, (3.5-5.1) 4.9 mmol/L Today, 15:05 Chloride, (98-107) 107 mmol/L Today, 15:05 Carbon Dioxide, (20.0-31.0) 25.0 mmol/L Today, 15:05 BUN, (9-23) 20 mg/dL Today, 15:05 Creatinine, (0.55-1.02) 0.81 mg/dL Today, 15:05 Est GFR (CKD-EPI 2020), (mL/min/1.73m2) 74.37 Today, 15:05 Calcium, (8.3-10.6) 9.4 mg/dL Today, 15:05 Albumin, (3.2-5.0) 4.2 g/dL Today, 15:05 Glucose, (74-106) 218 mg/dL H Today, 15:05 Hemoglobin A1c, (4.5-5.7) 7.6 % H 04/30/25, 14:2 5 Liver Function Panel: 2 ALT, (10-49) 48 U/L Today, 15:05 AST, (<34) 35 U/L Today, 15:05 Pancreas Panel: 2 Lipase, (<53) 170 U/L H Today, 15:05
--- NOTE | 2025-05-18 15:04 | DI.CT_ITS ---
Exam(s) CT ABDOMEN PELVIS WO EXAM: CT ABDOMEN PELVIS WO CLINICAL HISTORY: R flank pain radiating to RUQ. TECHNIQUE: Imaging Protocol: Axial computed tomography images with coronal and sagittal reformatted images were created and reviewed. COMPARISON: CR ABD FLAT UPRIGHT PA CHEST from 04/16/2014 FINDINGS: ABDOMEN: Lung Bases: Normal where visualized. Liver: Normal density. No measurable mass. Gallbladder and biliary tract: No radiodense calculus or biliary ductal dilation. Pancreas: Normal density, no abnormal calcifications or inflammatory process. Spleen: Normal. Kidneys: Normal size, contour and axis.No radiodense stones or obstructive uropathy. No masses seen. Adrenal glands: No mass is seen. Lymph nodes: Within normal limits. Abdominal Aorta: Abdominal portion non-dilated. Mild atherosclerotic calcification is present. PELVIS: Bladder:Symmetric distention, no gross wall thickening. Bowel: No obstruction or bowel wall thickening. There is no evidence of appendicitis. Peritoneal cavity: No ascites, collection or mesenteric inflammatory response. No free air. Reproductive organs: Unremarkable as visualized. Bones: Within normal limits. Soft Tissues: There is a small fat containing umbilical hernia. IMPRESSION: 1. There is no evidence of an acute abdominal or pelvic process. 2. There is no evidence of nephrolithiasis or hydronephrosis. RADIATION DOSE DELIVERED: 899.94mGy.cm Total DLP DATA REPOSITORY: All CT scans at this facility are submitted to the National Radiology Data Registry (NRDR) Dose Index Registry (DIR) with the [employer] (A[employer]). RADIATION OPTIMIZATION: All CT scans at this facility use at least one of these dose optimization techniques: automated exposure control; mA and/or kV adjustment per patient size (includes targeted exams where dose is matched to clinical indication); or iterative reconstruction.
[2025-05-18 15:08] VITALS: BP 150/75; PULSE 68; RESP 18; TEMP 36.5; O2SAT 99
[2025-05-18 15:13] LABS: Abs Immature Grans 0.03 10^3/uL (0.0-0.06); HCT 39.5 % (36.0-46.0); HGB 14.3 g/dL (11.2-15.7); Immature Grans % 0.6 %; MCH 32.6 pg (27.0-33.0); MCHC 36.2 % (32.0-36.0); MCV 90 fL (80-95); MPV 10.0 fL (8.0-11.0); Platelet Count 314 10^3/uL (130-400); RBC 4.39 10^6/uL (3.93-5.22); RDW 12.4 % (11.7-14.6); RDW-SD 41.2 fL; WBC 5.45 10^3/uL (4.4-10.8)
[2025-05-18 15:29] LABS: Lipase 170 U/L (<53)
[2025-05-18 15:31] LABS: ALT 48 U/L (10-49); AST 35 U/L (<34); Albumin 4.2 g/dL (3.2-5.0); Alkaline Phosphatase 60 U/L (46-116); Anion Gap 6 mmol/L (3-11); BUN 20 mg/dL (9-23); Bilirubin, Total 0.70 mg/dL (0.2-1.2); CO2 25.0 mmol/L (20.0-31.0); Calcium 9.4 mg/dL (8.3-10.6); Chloride 107 mmol/L (98-107); Glucose 218 mg/dL (74-106); Potassium 4.9 mmol/L (3.5-5.1); Sodium 138 mmol/L (136-145); Total Protein 7.8 g/dL (5.7-8.2)
[2025-05-18] MEDS: Ketorolac 15 MG/ML VIAL IVP (15:32)
[2025-05-18] MEDS: Normal Saline 1,000 ML 1000 ML IV (15:32)
== END 2025-05-18 17:04 | disposition home or self-care (01) ==
PROVIDERS: Emergency Medicine; Emergency Provider Emergency Medicine Emergency Medical Services; PCP Nurse Practitioner Family
DX: K85.90 Acute pancreatitis without necrosis or infection, unspecified (principal); E78.5 Hyperlipidemia, unspecified; E03.9 Hypothyroidism, unspecified; E11.3293 Type 2 diabetes mellitus with mild nonproliferative diabetic retinopathy without macular edema, bilateral; Z79.4 Long term (current) use of insulin; Z79.84 Long term (current) use of oral hypoglycemic drugs
CPT/HCPCS: 36415; 80053; 83690; 96361; 96374; 99284; 74176; 81003; 85025; J1885